=== PATIENT | male | born 1985 | race Caucasian/White ===

== ENCOUNTER 2016-08-13 02:33 | Emergency (ER) ==
[2016-08-13] MEDS ORDERED: DECADRON IM ONE (03:12)
[2016-08-13] MEDS ORDERED: PERCOCET-10 PO ONE (03:12)
[2016-08-13] MEDS ORDERED: TORADOL IM ONE (03:12)
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
[2016-08-13 03:41] VITALS: BP 138/92
== END 2016-08-13 04:03 | disposition home or self-care (01) ==
LOC: P.ED 02:33
DX: M54.16 Radiculopathy, lumbar region (principal); G89.29 Other chronic pain; M54.5 Low back pain; M79.652 Pain in left thigh; M79.651 Pain in right thigh; M79.662 Pain in left lower leg; M79.661 Pain in right lower leg; M79.672 Pain in left foot; M79.671 Pain in right foot; R20.2 Paresthesia of skin; I10 Essential (primary) hypertension
CPT/HCPCS: 96372; J1885